=== PATIENT | female | born 1955 | race Caucasian/White ===

== ENCOUNTER 2017-12-01 20:12 | Inpatient (IN) | payer MEDICARE, MEDICAID ==
[~2017-12-01] VITALS: Ht 157.5 cm; Wt 91.4 kg
[2017-12-01 20:53] LABS: GLUCOSE,POINT OF CARE 118 MG/DL (70-110)
[2017-12-01 21:41] LABS: BASOPHILS % (AUTO) 0.5 % (0.0-2.0); EOSINOPHILS % (AUTO) 2.4 % (1.0-6.0); HEMATOCRIT 40.5 % (36-46); HEMOGLOBIN 13.9 g/dL (12.0-16.0); LYMPHOCYTES # (AUTO) 3.2 K/uL (1.0-4.8); LYMPHOCYTES % (AUTO) 35.4 % (22.0-44.0); MEAN CORPUSCULAR HEMOGLOBIN 32.2 pg (26.0-34.0); MEAN CORPUSCULAR HGB CONC 34.4 G/dL (31.0-37.0); MEAN CORPUSCULAR VOLUME 94 fL (80-100); MONOCYTES # (AUTO) 0.5 K/uL (0.1-1.0); MONOCYTES % (AUTO) 5.4 % (2.0-9.0); NEUTROPHILS # (AUTO) 5.1 K/uL (1.8-7.7); NEUTROPHILS % (AUTO) 56.3 % (40.0-70.0); PLATELET COUNT (AUTO) 224 K/uL (150-450); RED BLOOD CELL COUNT(AUTO) 4.32 MIL/uL (4.00-5.20); RED CELL DISTRIBUTION WIDTH 12.7 % (11.5-14.5)
[2017-12-01 21:58] LABS: ANION GAP 11 mmol/L (8-16); CARBON DIOXIDE 25 mmol/L (22-29); CHLORIDE 102 mmol/L (98-107); CREATININE 0.91 mg/dL (0.60-1.30); GLOMERULAR FILTR. RATE CALC > 60 mL/min (>60); GLUCOSE,RANDOM 115 mg/dL (70-110); POTASSIUM 3.8 mmol/L (3.5-5.1); SODIUM SERUM 138 mmol/L (136-145); UREA NITROGEN, BLOOD 5 mg/dL (7-18)
[2017-12-01 22:02] LABS: ALANINE AMINOTRANSFERASE 38 U/L (12-78); ALBUMIN 3.7 g/dL (3.4-5.0); ALKALINE PHOSPHATASE 104 U/L (46-116); ASPARTATE AMINOTRANSFERASE 23 U/L (15-37); BILIRUBIN,TOTAL 0.2 mg/dL (0.1-1.0); TOTAL PROTEIN, SERUM 7.4 g/dL (6.4-8.2)
[2017-12-01 22:20] LABS: AMPHET/METH SCREEN,URINE NEGATIVE (NEGATIVE); BARBITURATE SCREEN, URINE NEGATIVE (NEGATIVE); BENZODIAZEPINES SCREEN,URINE NEGATIVE (NEGATIVE); CANNABINOID SCREEN,URINE NEGATIVE (NEGATIVE); COCAINE SCREEN,URINE NEGATIVE (NEGATIVE); METHADONE SCREEN, URINE NEGATIVE (NEGATIVE); OPIATE SCREEN,URINE NEGATIVE (NEGATIVE)
[2017-12-01 22:23] LABS: PHENCYCLIDINE SCREEN,URINE NEGATIVE (NEGATIVE)
[2017-12-02] MEDS ORDERED: HALOPERIDOL 5 MG TABLET PO PRN (00:15)
[2017-12-02] MEDS ORDERED: ZOLPIDEM TARTRATE 10 MG TABLET PO PRN (00:15)
[2017-12-02] MEDS ORDERED: LORazepam 2 MG TABLET PO PRN (00:15)
[2017-12-02 04:14] VITALS: BP 157/79
[2017-12-02] MEDS: RisperiDONE 0.5 MG TABLET PO SCH ×2 (09:00→17:00)
[2017-12-02 10:16] VITALS: BP 150/64
[2017-12-02 17:00] VITALS: BP 151/93
[2017-12-02] MEDS ORDERED: MAG HYDROX/AL HYDROX/SIMETH ES 30 ML SUSPENSION UDCUP PO PRN (22:00)
[2017-12-02] MEDS ORDERED: PETROLATUM,WHITE 71 GM JELLY TP PRN (22:00)
[2017-12-02] MEDS ORDERED: ACETAMINOPHEN 325 MG TABLET PO PRN (22:00)
[2017-12-02] MEDS ORDERED: CloNIDine HCL 0.1 MG TABLET PO PRN (22:00)
[2017-12-02] MEDS ORDERED: LOPERAMIDE HCL 2 MG CAPSULE PO PRN (22:00)
[2017-12-02] MEDS ORDERED: ALBUTEROL SULFATE HFA 90 MCG/PUFF 8 GM INHALER IH PRN (22:00)
[2017-12-02] MEDS ORDERED: ONDANSETRON HCL 4 MG TABLET PO PRN (22:00)
[2017-12-02] MEDS ORDERED: DOCUSATE SODIUM 100 MG CAPSULE PO PRN (22:00)
[2017-12-02] MEDS ORDERED: MAGNESIUM HYDROXIDE SUSPENSION 30 ML UDCUP PO PRN (22:00)
[2017-12-03 07:41] LABS: BASOPHILS % (AUTO) 0.5 % (0.0-2.0); EOSINOPHILS % (AUTO) 2.3 % (1.0-6.0); HEMATOCRIT 40.5 % (36-46); HEMOGLOBIN 13.8 g/dL (12.0-16.0); LYMPHOCYTES # (AUTO) 2.3 K/uL (1.0-4.8); LYMPHOCYTES % (AUTO) 27.7 % (22.0-44.0); MEAN CORPUSCULAR HEMOGLOBIN 31.8 pg (26.0-34.0); MEAN CORPUSCULAR HGB CONC 33.9 G/dL (31.0-37.0); MEAN CORPUSCULAR VOLUME 94 fL (80-100); MONOCYTES # (AUTO) 0.6 K/uL (0.1-1.0); MONOCYTES % (AUTO) 7.2 % (2.0-9.0); NEUTROPHILS # (AUTO) 5.1 K/uL (1.8-7.7); NEUTROPHILS % (AUTO) 62.3 % (40.0-70.0); PLATELET COUNT (AUTO) 201 K/uL (150-450); RED BLOOD CELL COUNT(AUTO) 4.32 MIL/uL (4.00-5.20); RED CELL DISTRIBUTION WIDTH 13.1 % (11.5-14.5)
[2017-12-03 08:03] LABS: HEMOGLOBIN A1C 6.6 % (4.5-6.2)
[2017-12-03 08:22] LABS: CHOL/HDL RATIO 3.1 (3.9-5.7); THYROID STIMULATING HORMONE 3.24 uIU/mL (0.36-3.74)
[2017-12-03] MEDS: RisperiDONE 0.5 MG TABLET PO SCH ×2 (09:00→16:00)
[2017-12-03] MEDS: AmLODIPine BESYLATE 5 MG TABLET PO SCH (09:00)
[2017-12-03 10:06] VITALS: BP 148/85
[2017-12-03] MEDS: IBUPROFEN 400 MG TABLET PO PRN (13:03)
[2017-12-03 16:29] VITALS: BP 133/81
[2017-12-03 16:59] LABS: GLUCOMETER DEV NAME(LOC) 3EX 1; GLUCOSE,POINT OF CARE 119 MG/DL (70-110)
[2017-12-04 06:07] LABS: GLUCOMETER DEV NAME(LOC) 3EI B; GLUCOSE,POINT OF CARE 102 MG/DL (70-110)
[2017-12-04] MEDS: AmLODIPine BESYLATE 5 MG TABLET PO SCH (08:09)
[2017-12-04] MEDS: RisperiDONE 0.5 MG TABLET PO SCH ×2 (08:09→16:27)
[2017-12-04 09:37] VITALS: BP 152/78
[2017-12-04] MEDS: IBUPROFEN 400 MG TABLET PO PRN (12:57)
[2017-12-04 16:29] LABS: GLUCOMETER DEV NAME(LOC) 3EX 1; GLUCOSE,POINT OF CARE 126 MG/DL (70-110)
[2017-12-04 16:47] VITALS: BP 116/73
[2017-12-05 05:44] LABS: GLUCOMETER DEV NAME(LOC) 3EI B; GLUCOSE,POINT OF CARE 88 MG/DL (70-110)
[2017-12-05] MEDS: AmLODIPine BESYLATE 5 MG TABLET PO SCH (08:16)
[2017-12-05] MEDS: RisperiDONE 0.5 MG TABLET PO SCH ×2 (08:16→15:57)
[2017-12-05 09:41] VITALS: BP 125/72
[2017-12-05] MEDS: IBUPROFEN 400 MG TABLET PO PRN (12:51)
[2017-12-05 19:44] VITALS: BP 131/88
[2017-12-06 06:14] LABS: GLUCOMETER DEV NAME(LOC) 3EI B; GLUCOSE,POINT OF CARE 101 MG/DL (70-110)
[2017-12-06] MEDS: AmLODIPine BESYLATE 5 MG TABLET PO SCH (08:05)
[2017-12-06] MEDS: MULTIVITAMINS WITH MINERALS, THERAPEUTIC TABLET PO SCH (08:05)
[2017-12-06] MEDS: RisperiDONE 0.5 MG TABLET PO SCH ×2 (08:05→16:35)
[2017-12-06 08:55] VITALS: BP 153/89
[2017-12-06 16:40] VITALS: BP 137/74
[2017-12-06 16:43] LABS: GLUCOMETER DEV NAME(LOC) 3EX 1; GLUCOSE,POINT OF CARE 147 MG/DL (70-110)
[2017-12-07 05:39] LABS: GLUCOMETER DEV NAME(LOC) 3EI B; GLUCOSE,POINT OF CARE 101 MG/DL (70-110)
[2017-12-07 08:55] VITALS: BP 147/74
[2017-12-07] MEDS: AmLODIPine BESYLATE 5 MG TABLET PO SCH (10:12)
[2017-12-07] MEDS: MULTIVITAMINS WITH MINERALS, THERAPEUTIC TABLET PO SCH (10:12)
[2017-12-07] MEDS: RisperiDONE 0.5 MG TABLET PO SCH ×2 (10:13→16:16)
[2017-12-07 16:53] VITALS: BP 148/77
[2017-12-07 17:23] LABS: GLUCOMETER DEV NAME(LOC) 3EX 1; GLUCOSE,POINT OF CARE 147 MG/DL (70-110)
[2017-12-08 05:39] LABS: GLUCOMETER DEV NAME(LOC) 3EI B; GLUCOSE,POINT OF CARE 104 MG/DL (70-110)
[2017-12-08 08:00] VITALS: BP 132/71
[2017-12-08] MEDS: MULTIVITAMINS WITH MINERALS, THERAPEUTIC TABLET PO SCH (08:02)
[2017-12-08] MEDS: AmLODIPine BESYLATE 5 MG TABLET PO SCH (08:02)
[2017-12-08] MEDS: RisperiDONE 0.5 MG TABLET PO SCH (08:02)
[2017-12-08] MEDS: IBUPROFEN 400 MG TABLET PO PRN (08:05)
[2017-12-08 08:07] VITALS: BP 137/72
[2017-12-08 09:00] VITALS: BP 123/63
[2017-12-08] MEDS ORDERED: RISP.5 PO (11:21)
[2017-12-08] MEDS ORDERED: AMLO-511 PO (11:26)
== END 2017-12-08 17:00 | disposition home or self-care (01) | DRG 885 ==
LOC: EMS 20:12 → 3EX 12-02 01:11
PROVIDERS: ADMIT Psychiatry & Neurology Child & Adolescent Psychiatry; ATTEND Psychiatry & Neurology Child & Adolescent Psychiatry
DX: F20.0 Paranoid schizophrenia (principal); E11.9 Type 2 diabetes mellitus without complications; F41.9 Anxiety disorder, unspecified; I10 Essential (primary) hypertension; R00.1 Bradycardia, unspecified; F99 Mental disorder, not otherwise specified; G20 Parkinson's disease
CPT/HCPCS: 83036; 84443; 87081; 99285; G0480

== ENCOUNTER 2023-07-23 13:08 | Inpatient (IN) | payer MEDICARE, MEDICAID ==
[~2023-07-23] VITALS: Ht 157.5 cm; Wt 75.0 kg
[~2023-07-23 13:08] MED LIST: AMLO-257 PO; RISP0.5T39 PO
[2023-07-23] MEDS ORDERED: DIVA125T32 PO (14:28)
[2023-07-23] MEDS ORDERED: GEMF-77 PO (14:28)
[2023-07-23] MEDS ORDERED: METF-1211 PO (14:28)
[2023-07-23] MEDS ORDERED: BENZ1TAB84 PO (14:28)
[2023-07-23] MEDS ORDERED: ATOR10TA PO (14:28)
[2023-07-23] MEDS ORDERED: LEVO25TA9 PO (14:28)
[2023-07-23] MEDS ORDERED: PALI234D IM (14:28)
[2023-07-23 14:47] LABS: COVID AG,FIA SOURCE NASAL SWAB
[2023-07-23 15:38] LABS: SARS-COV2 (COVID) ANTIGEN,FIA Negative (Negative)
[2023-07-23] MEDS: LORazepam 2 MG/ML VIAL IM ONE (16:17)
[2023-07-23] MEDS: HALOPERIDOL LACTATE 5 MG/ML VIAL IM ONE (16:18)
[2023-07-23] MEDS: DiphenhydrAMINE HCL 50 MG/ML VIAL IM ONE (16:19)
[2023-07-24] MEDS ORDERED: LORazepam 2 MG TABLET PO PRN (11:30)
[2023-07-24] MEDS ORDERED: HALOPERIDOL 5 MG TABLET PO PRN (11:30)
[2023-07-24] MEDS ORDERED: ZOLPIDEM TARTRATE 10 MG TABLET PO PRN (11:45)
[2023-07-24] MEDS ORDERED: ALBUTEROL SULFATE HFA 90 MCG/PUFF 8 GM INHALER IH PRN (14:00)
[2023-07-24] MEDS ORDERED: NICOTINE 14 MG/24 HOUR PATCH TD PRN (14:00)
[2023-07-24] MEDS ORDERED: IBUPROFEN 400 MG TABLET PO PRN (14:00)
[2023-07-24] MEDS ORDERED: CloNIDine HCL 0.1 MG TABLET PO PRN (14:00)
[2023-07-24] MEDS ORDERED: MAG HYDROX/ALUMINUM HYD/SIMETH ES 30 ML SUSPENSION UDCUP PO PRN (14:00)
[2023-07-24] MEDS ORDERED: MAGNESIUM HYDROXIDE SUSPENSION 30 ML UDCUP PO PRN (14:00)
[2023-07-24] MEDS ORDERED: DOCUSATE SODIUM 100 MG CAPSULE PO PRN (14:00)
[2023-07-24] MEDS ORDERED: LOPERAMIDE HCL 2 MG CAPSULE PO PRN (14:00)
[2023-07-24] MEDS ORDERED: GuaiFENesin/D-METHORPHAN [SUGAR-FREE] 200-20MG/10 ML SYRUP UDCUP PO PRN (14:00)
[2023-07-24] MEDS ORDERED: PETROLATUM,WHITE 28 GM JELLY TP PRN (14:00)
[2023-07-24] MEDS ORDERED: ACETAMINOPHEN 325 MG TABLET PO PRN (14:00)
[2023-07-24] MEDS ORDERED: ONDANSETRON HCL 4 MG TABLET PO PRN (14:00)
[2023-07-24] MEDS: MetFORMIN HCL 500 MG TABLET PO SCH (17:00)
[2023-07-24] MEDS: ATORVASTATIN CALCIUM 10 MG TABLET PO SCH (21:00)
[2023-07-25 06:06] VITALS: BP 118/78; PULSE 76; RESP 18; TEMP 97.2
[2023-07-25] MEDS: LEVOTHYROXINE SODIUM 25 MCG TABLET PO SCH (06:30)
[2023-07-25] MEDS: GEMFIBROZIL 600 MG TABLET PO SCH (06:30)
[2023-07-25] MEDS: AmLODIPine BESYLATE 5 MG TABLET PO SCH (08:37)
[2023-07-25 12:00] VITALS: RESP 18
== END 2023-07-25 21:00 | disposition short-term general hospital (02) | DRG 885 ==
LOC: EMS 13:09 → B3A 07-24 09:16
PROVIDERS: ADMIT Psychiatry & Neurology Child & Adolescent Psychiatry; ATTEND Psychiatry & Neurology Child & Adolescent Psychiatry
DX: F25.9 Schizoaffective disorder, unspecified (principal); E11.9 Type 2 diabetes mellitus without complications; F41.9 Anxiety disorder, unspecified; E05.90 Thyrotoxicosis, unspecified without thyrotoxic crisis or storm; Z20.822 Contact with and (suspected) exposure to COVID-19; I10 Essential (primary) hypertension; Z79.899 Other long term (current) drug therapy
CPT/HCPCS: J1200; J1630; J2060

== ENCOUNTER 2023-07-25 14:43 | Inpatient (IN) | payer MEDICARE, OTHER ==
[~2023-07-25] VITALS: Ht 157.5 cm; Wt 92.0 kg
[~2023-07-25 14:43] MED LIST changes: +ATOR10TA PO; +BENZ1TAB84 PO; +DIVA125T32 PO; +GEMF-77 PO; +LEVO25TA9 PO; +METF-1211 PO; +PALI234D IM
[2023-07-25 20:37] VITALS: BP 156/79; PULSE 61; RESP 17; TEMP 98.8
[2023-07-25] MEDS ORDERED: ACETAMINOPHEN 325 MG TABLET PO PRN (21:15)
[2023-07-25] MEDS ORDERED: ONDANSETRON HCL 4 MG/2 ML VIAL IVP PRN (21:15)
[2023-07-25 21:28] LABS: BASOPHILS % (AUTO) 0.2 % (0.0-2.0); EOSINOPHILS % (AUTO) 0.7 % (1.0-6.0); HEMATOCRIT 41.8 % (36-46); HEMOGLOBIN 13.8 g/dL (12.0-16.0); LYMPHOCYTES # (AUTO) 1.5 K/uL (1.0-4.8); LYMPHOCYTES % (AUTO) 13.2 % (22.0-44.0); MEAN CORPUSCULAR HEMOGLOBIN 30.5 pg (26.0-34.0); MEAN CORPUSCULAR HGB CONC 32.9 G/dL (31.0-37.0); MEAN CORPUSCULAR VOLUME 93 fL (80-100); MONOCYTES # (AUTO) 0.6 K/uL (0.1-1.0); MONOCYTES % (AUTO) 5.2 % (2.0-9.0); NEUTROPHILS % (AUTO) 80.7 % (40.0-70.0); PLATELET COUNT (AUTO) 185 K/uL (150-450); RED BLOOD CELL COUNT(AUTO) 4.51 MIL/uL (4.00-5.20); RED CELL DISTRIBUTION WIDTH 13.2 % (11.5-14.5); WHITE BLOOD COUNT (AUTO) 11.2 K/uL (4.5-11.0)
[2023-07-25] MEDS ORDERED: KETOROLAC TROMETHAMINE 15 MG/ML VIAL IVP PRN (21:30)
[2023-07-25] MEDS ORDERED: MORPHINE SULFATE 2 MG/ML SYRINGE IVP PRN (21:30)
[2023-07-25 21:37] LABS: ANION GAP 8 mmol/L (8-16); CALCIUM, TOTAL 9.4 mg/dL (8.8-10.5); CARBON DIOXIDE 28 mmol/L (22-29); CHLORIDE 102 mmol/L (98-107); CREATININE 0.62 mg/dL (0.60-1.30); GLOMERULAR FILTR. RATE CALC > 60 mL/min (>60); GLUCOSE,RANDOM 114 mg/dL (70-110); POTASSIUM 3.6 mmol/L (3.5-5.1); SODIUM SERUM 138 mmol/L (136-145); UREA NITROGEN, BLOOD 22 mg/dL (7-18)
[2023-07-25 21:43] LABS: ALANINE AMINOTRANSFERASE 20 U/L (12-78); ALKALINE PHOSPHATASE 106 U/L (46-116); ASPARTATE AMINOTRANSFERASE 20 U/L (15-37); BILIRUBIN,TOTAL 0.5 mg/dL (0.1-1.0); TOTAL PROTEIN, SERUM 7.4 g/dL (6.4-8.2)
[2023-07-25 21:45] LABS: TROPONIN I-HIGH SENSITIVITY 10 ng/L (<51)
[2023-07-25 21:50] LABS: ALBUMIN 3.3 g/dL (3.4-5.0)
[2023-07-25] MEDS: LIDOCAINE 5% 36 GM OINTMENT TP SCH (23:15)
[2023-07-25] MEDS: MELATONIN 3 MG TABLET PO PRN (23:18)
[2023-07-25] MEDS: HALOPERIDOL LACTATE 5 MG/ML VIAL IM ONE (23:26)
[2023-07-25] MEDS ORDERED: DEXTROSE 50%-WATER 25 GM/50 ML SYRINGE IVP PRN (23:30)
[2023-07-25] MEDS ORDERED: INSULIN LISPRO 100 UNITS/ML SQ PRN (23:30)
[2023-07-26] MEDS: LORazepam 2 MG/ML VIAL IM ONE (02:19)
[2023-07-26] MEDS: DiphenhydrAMINE HCL 50 MG/ML VIAL IM ONE (02:20)
[2023-07-26] MEDS: HALOPERIDOL LACTATE 5 MG/ML VIAL IM ONE (02:24)
[2023-07-26] MEDS: LEVOTHYROXINE SODIUM 25 MCG TABLET PO SCH (06:30)
[2023-07-26] MEDS: GEMFIBROZIL 600 MG TABLET PO SCH (06:30)
[2023-07-26] MEDS: BENZTROPINE MESYLATE 1 MG TABLET PO SCH (09:00)
[2023-07-26] MEDS: DOCUSATE SODIUM 100 MG CAPSULE PO SCH (09:00)
[2023-07-26] MEDS: AmLODIPine BESYLATE 5 MG TABLET PO SCH (09:00)
[2023-07-26] MEDS: DIVALPROEX SODIUM 125 MG DR TABLET PO SCH (09:00)
[2023-07-26] MEDS: SODIUM CHLORIDE 0.9% 1,000 ML IV SCH (11:19)
[2023-07-26] MEDS: ATORVASTATIN CALCIUM 10 MG TABLET PO SCH (21:00)
[2023-07-27] MEDS: HEPARIN SODIUM,PORCINE 5,000 UNITS/ML VIAL SQ SCH
[2023-07-28] MEDS ORDERED: DIVA125C20 PO (18:31)
[2023-07-28] MEDS ORDERED: LISI5TAB21 PO (18:31)
[2023-07-28 18:52] LABS: COVID AG,FIA SOURCE NASAL SWAB
[2023-07-28 19:08] LABS: SARS-COV2 (COVID) ANTIGEN,FIA Negative (Negative)
== END 2023-07-28 21:50 | DRG 563 ==
LOC: EMS 14:45 → 6S 22:29
PROVIDERS: ADMIT Internal Medicine; ATTEND Internal Medicine
DX: S52.591A Other fractures of lower end of right radius, initial encounter for closed fracture (principal); F41.9 Anxiety disorder, unspecified; E11.9 Type 2 diabetes mellitus without complications; I10 Essential (primary) hypertension; F20.9 Schizophrenia, unspecified; E03.9 Hypothyroidism, unspecified; E05.90 Thyrotoxicosis, unspecified without thyrotoxic crisis or storm; R45.1 Restlessness and agitation; R79.89 Other specified abnormal findings of blood chemistry; X58.XXXA Exposure to other specified factors, initial encounter; Y93.89 Activity, other specified; Y92.89 Other specified places as the place of occurrence of the external cause; Y99.8 Other external cause status; Z79.899 Other long term (current) drug therapy; M81.0 Age-related osteoporosis without current pathological fracture
CPT/HCPCS: 80053; 84484; 85025; 93005; 99285; J1200; J1630; J1644; J2060

== ENCOUNTER 2023-07-28 16:36 | Inpatient (IN) | payer MEDICARE, MEDICAID ==
[~2023-07-28] VITALS: Ht 157.5 cm; Wt 78.0 kg
[2023-07-28] MEDS ORDERED: ZOLPIDEM TARTRATE 10 MG TABLET PO PRN (18:15)
[2023-07-28] MEDS ORDERED: DIVA125C20 PO (18:31)
[2023-07-28] MEDS ORDERED: LISI5TAB21 PO (18:31)
[2023-07-29 00:25] VITALS: RESP 18
[2023-07-29] MEDS ORDERED: PNEUMOCOCCAL VACCINE POLYVALENT 0.5 ML SYRINGE [PPSV23] IM. ONE (00:30)
[2023-07-29] MEDS ORDERED: INFLUENZA VIRUS VACCINE QVS 2023-24 (6MO+)/PF 60 MCG/0.5 ML SYRINGE IM. ONE (00:30)
[2023-07-29] MEDS ORDERED: LORazepam 2 MG/ML VIAL ONE (01:38)
[2023-07-29] MEDS ORDERED: HALOPERIDOL LACTATE 5 MG/ML VIAL ONE (01:39)
[2023-07-29] MEDS ORDERED: DiphenhydrAMINE HCL 50 MG/ML VIAL ONE (01:39)
[2023-07-29] MEDS: DiphenhydrAMINE HCL 50 MG/ML VIAL IM ONE ×2 (01:53→12:46)
[2023-07-29] MEDS: HALOPERIDOL LACTATE 5 MG/ML VIAL IM ONE ×2 (01:53→12:46)
[2023-07-29] MEDS: LORazepam 2 MG/ML VIAL IM ONE ×2 (01:53→12:46)
[2023-07-29] MEDS ORDERED: DEXTROSE 50%-WATER 25 GM/50 ML SYRINGE IVP PRN (06:45)
[2023-07-29] MEDS: DIVALPROEX SODIUM 500 MG DR TABLET PO SCH (09:30)
[2023-07-29] MEDS: RisperiDONE 2 MG TABLET PO SCH (09:30)
[2023-07-29] MEDS: INSULIN LISPRO 100 UNITS/ML SQ PRN (18:49)
[2023-07-29 19:01] LABS: GLUCOMETER DEV NAME(LOC) 3EX.2; GLUCOSE,POINT OF CARE 93 MG/DL (70-110)
[2023-07-29] MEDS: ChlorproMAZINE HCL 50 MG/2 ML AMP IM PRN (19:28)
[2023-07-29 20:47] VITALS: RESP 18
[2023-07-29 21:36] LABS: GLUCOMETER DEV NAME(LOC) 3EX.2; GLUCOSE,POINT OF CARE 140 MG/DL (70-110)
[2023-07-30 06:31] LABS: GLUCOMETER DEV NAME(LOC) 3EX.2; GLUCOSE,POINT OF CARE 91 MG/DL (70-110)
[2023-07-30] MEDS ORDERED: MAGNESIUM HYDROXIDE SUSPENSION 30 ML UDCUP PO PRN (08:00)
[2023-07-30] MEDS ORDERED: LOPERAMIDE HCL 2 MG CAPSULE PO PRN (08:00)
[2023-07-30] MEDS ORDERED: ONDANSETRON HCL 4 MG TABLET PO PRN (08:00)
[2023-07-30] MEDS ORDERED: MAG HYDROX/ALUMINUM HYD/SIMETH ES 30 ML SUSPENSION UDCUP PO PRN (08:00)
[2023-07-30] MEDS ORDERED: IBUPROFEN 400 MG TABLET PO PRN (08:00)
[2023-07-30] MEDS ORDERED: DOCUSATE SODIUM 100 MG CAPSULE PO PRN (08:00)
[2023-07-30] MEDS ORDERED: ALBUTEROL SULFATE HFA 90 MCG/PUFF 8 GM INHALER IH PRN (08:00)
[2023-07-30] MEDS ORDERED: CloNIDine HCL 0.1 MG TABLET PO PRN (08:00)
[2023-07-30] MEDS ORDERED: GuaiFENesin/D-METHORPHAN [SUGAR-FREE] 200-20MG/10 ML SYRUP UDCUP PO PRN (08:00)
[2023-07-30] MEDS ORDERED: PETROLATUM,WHITE 28 GM JELLY TP PRN (08:00)
[2023-07-30] MEDS ORDERED: ACETAMINOPHEN 325 MG TABLET PO PRN (08:00)
[2023-07-30 09:20] VITALS: RESP 18
[2023-07-30 17:51] LABS: GLUCOMETER DEV NAME(LOC) 3E.I 2; GLUCOSE,POINT OF CARE 101 MG/DL (70-110)
[2023-07-30 20:46] VITALS: RESP 18
[2023-07-30 20:50] LABS: GLUCOMETER DEV NAME(LOC) 3EX.2; GLUCOSE,POINT OF CARE 165 MG/DL (70-110)
[2023-07-31 05:51] LABS: GLUCOMETER DEV NAME(LOC) 3E.I 2; GLUCOSE,POINT OF CARE 129 MG/DL (70-110)
[2023-07-31 08:23] LABS: BASOPHILS % (AUTO) 0.5 % (0.0-2.0); EOSINOPHILS % (AUTO) 1.5 % (1.0-6.0); HEMATOCRIT 43.2 % (36-46); HEMOGLOBIN 14.2 g/dL (12.0-16.0); LYMPHOCYTES # (AUTO) 2.4 K/uL (1.0-4.8); LYMPHOCYTES % (AUTO) 28.1 % (22.0-44.0); MEAN CORPUSCULAR HEMOGLOBIN 30.5 pg (26.0-34.0); MEAN CORPUSCULAR HGB CONC 32.9 G/dL (31.0-37.0); MEAN CORPUSCULAR VOLUME 93 fL (80-100); MONOCYTES # (AUTO) 0.6 K/uL (0.1-1.0); MONOCYTES % (AUTO) 6.9 % (2.0-9.0); NEUTROPHILS # (AUTO) 5.4 K/uL (1.8-7.7); PLATELET COUNT (AUTO) 202 K/uL (150-450); RED BLOOD CELL COUNT(AUTO) 4.66 MIL/uL (4.00-5.20); RED CELL DISTRIBUTION WIDTH 13.3 % (11.5-14.5); WHITE BLOOD COUNT (AUTO) 8.5 K/uL (4.5-11.0)
[2023-07-31 08:36] LABS: HEMOGLOBIN A1C 6.1 % (3.8-5.6)
[2023-07-31 08:56] LABS: ALANINE AMINOTRANSFERASE 23 U/L (12-78); ALBUMIN 3.2 g/dL (3.4-5.0); ALKALINE PHOSPHATASE 110 U/L (46-116); ASPARTATE AMINOTRANSFERASE 25 U/L (15-37); BILIRUBIN,TOTAL 0.7 mg/dL (0.1-1.0); CALCIUM, TOTAL 9.8 mg/dL (8.8-10.5); CHLORIDE 101 mmol/L (98-107); CREATININE 0.63 mg/dL (0.60-1.30); GLOMERULAR FILTR. RATE CALC > 60 mL/min (>60); GLUCOSE,RANDOM 114 mg/dL (70-110); POTASSIUM 4.1 mmol/L (3.5-5.1); SODIUM SERUM 136 mmol/L (136-145); THYROID STIMULATING HORMONE 4.21 uIU/mL (0.36-3.74); TOTAL PROTEIN, SERUM 7.8 g/dL (6.4-8.2); UREA NITROGEN, BLOOD 14 mg/dL (7-18)
[2023-07-31 09:03] LABS: ANION GAP 6 mmol/L (8-16); CARBON DIOXIDE 29 mmol/L (22-29)
[2023-07-31 09:44] LABS: CHOL/HDL RATIO 2.8 (3.9-5.7); CHOLESTEROL 193 mg/dL (131-200); HDL CHOLESTEROL 69 mg/dL (40-60); LDL CHOL (CALC.) 107 mg/dL (0-130); TRIGLYCERIDES 85 mg/dL (15-150)
[2023-07-31 10:04] VITALS: RESP 18; TEMP 97
[2023-07-31 12:11] LABS: GLUCOMETER DEV NAME(LOC) 3EX.2; GLUCOSE,POINT OF CARE 110 MG/DL (70-110)
[2023-07-31 17:26] LABS: GLUCOMETER DEV NAME(LOC) 3EX.2; GLUCOSE,POINT OF CARE 161 MG/DL (70-110)
[2023-07-31 20:11] LABS: GLUCOMETER DEV NAME(LOC) 3E.I 2; GLUCOSE,POINT OF CARE 201 MG/DL (70-110)
[2023-07-31 20:52] VITALS: RESP 18
[2023-08-01 05:46] LABS: GLUCOMETER DEV NAME(LOC) 3E.I 2; GLUCOSE,POINT OF CARE 88 MG/DL (70-110)
[2023-08-01 08:33] VITALS: RESP 18; TEMP 98
[2023-08-01 11:06] LABS: GLUCOMETER DEV NAME(LOC) 3EX.2; GLUCOSE,POINT OF CARE 144 MG/DL (70-110)
[2023-08-01 17:26] LABS: GLUCOMETER DEV NAME(LOC) 3EX.2; GLUCOSE,POINT OF CARE 172 MG/DL (70-110)
[2023-08-01 21:00] VITALS: RESP 18
[2023-08-01 22:01] LABS: GLUCOMETER DEV NAME(LOC) 3EX.2; GLUCOSE,POINT OF CARE 145 MG/DL (70-110)
[2023-08-02 05:35] LABS: GLUCOMETER DEV NAME(LOC) 3E.I 2; GLUCOSE,POINT OF CARE 83 MG/DL (70-110)
[2023-08-02 09:05] VITALS: RESP 18
[2023-08-02 11:25] LABS: GLUCOMETER DEV NAME(LOC) 3E.I 2; GLUCOSE,POINT OF CARE 96 MG/DL (70-110)
[2023-08-02 16:20] LABS: GLUCOMETER DEV NAME(LOC) 3E.I 2; GLUCOSE,POINT OF CARE 124 MG/DL (70-110)
[2023-08-02 21:01] LABS: GLUCOMETER DEV NAME(LOC) 3E.I 2; GLUCOSE,POINT OF CARE 114 MG/DL (70-110)
[2023-08-02 22:46] VITALS: RESP 18
[2023-08-03 06:11] LABS: GLUCOMETER DEV NAME(LOC) 3E.I 2; GLUCOSE,POINT OF CARE 87 MG/DL (70-110)
[2023-08-03 11:30] LABS: GLUCOMETER DEV NAME(LOC) 3EX.2; GLUCOSE,POINT OF CARE 102 MG/DL (70-110)
[2023-08-03 16:41] LABS: GLUCOMETER DEV NAME(LOC) 3EX.2; GLUCOSE,POINT OF CARE 96 MG/DL (70-110)
[2023-08-03 20:40] LABS: GLUCOMETER DEV NAME(LOC) 3EX.2; GLUCOSE,POINT OF CARE 139 MG/DL (70-110)
[2023-08-03 20:58] VITALS: BP 126/62; PULSE 69; RESP 18; TEMP 97.2
[2023-08-04 07:06] LABS: GLUCOMETER DEV NAME(LOC) 3E.I 2; GLUCOSE,POINT OF CARE 91 MG/DL (70-110)
[2023-08-04 11:30] LABS: GLUCOMETER DEV NAME(LOC) 3EX.2; GLUCOSE,POINT OF CARE 168 MG/DL (70-110)
[2023-08-04 11:31] VITALS: RESP 18
[2023-08-04 17:40] LABS: GLUCOMETER DEV NAME(LOC) 3EX.2; GLUCOSE,POINT OF CARE 104 MG/DL (70-110)
[2023-08-04 20:10] VITALS: RESP 18
[2023-08-04 21:16] LABS: GLUCOMETER DEV NAME(LOC) 3E.I 2; GLUCOSE,POINT OF CARE 145 MG/DL (70-110)
[2023-08-05 07:06] LABS: GLUCOMETER DEV NAME(LOC) 3E.I 2; GLUCOSE,POINT OF CARE 84 MG/DL (70-110)
[2023-08-05 11:40] LABS: GLUCOMETER DEV NAME(LOC) 3EX.2; GLUCOSE,POINT OF CARE 142 MG/DL (70-110)
[2023-08-05 11:51] VITALS: RESP 19
[2023-08-05 17:26] LABS: GLUCOMETER DEV NAME(LOC) 3EX.2; GLUCOSE,POINT OF CARE 197 MG/DL (70-110)
[2023-08-05 20:21] VITALS: RESP 18
[2023-08-05 20:31] LABS: GLUCOMETER DEV NAME(LOC) 3E.I 2; GLUCOSE,POINT OF CARE 174 MG/DL (70-110)
[2023-08-06 05:36] LABS: GLUCOMETER DEV NAME(LOC) 3E.I 2; GLUCOSE,POINT OF CARE 88 MG/DL (70-110)
[2023-08-06 08:45] VITALS: RESP 18; TEMP 97.6
[2023-08-06 11:46] LABS: GLUCOMETER DEV NAME(LOC) 3EX.2; GLUCOSE,POINT OF CARE 121 MG/DL (70-110)
[2023-08-06 17:31] LABS: GLUCOMETER DEV NAME(LOC) 3EX.2; GLUCOSE,POINT OF CARE 96 MG/DL (70-110)
[2023-08-06 20:28] VITALS: BP 141/81; PULSE 86; RESP 18; TEMP 98.1
[2023-08-07 04:26] LABS: GLUCOMETER DEV NAME(LOC) 3E.I 2; GLUCOSE,POINT OF CARE 176 MG/DL (70-110)
[2023-08-07 05:41] LABS: GLUCOMETER DEV NAME(LOC) 3E.I 2; GLUCOSE,POINT OF CARE 91 MG/DL (70-110)
[2023-08-07 08:40] VITALS: BP 116/57; PULSE 64; RESP 18; TEMP 97.6
[2023-08-07 11:46] LABS: GLUCOMETER DEV NAME(LOC) 3EX.2; GLUCOSE,POINT OF CARE 106 MG/DL (70-110)
[2023-08-07 20:37] LABS: GLUCOMETER DEV NAME(LOC) 3EX.2; GLUCOSE,POINT OF CARE 124 MG/DL (70-110)
[2023-08-08 06:31] LABS: GLUCOMETER DEV NAME(LOC) 3EX.2; GLUCOSE,POINT OF CARE 95 MG/DL (70-110)
[2023-08-08 08:32] VITALS: RESP 18
[2023-08-08 11:45] LABS: GLUCOMETER DEV NAME(LOC) 3E.I 2; GLUCOSE,POINT OF CARE 119 MG/DL (70-110)
[2023-08-08] MEDS: DIVALPROEX SODIUM 125 MG DR CAPSULE PO SCH (17:00)
[2023-08-08 17:36] LABS: GLUCOMETER DEV NAME(LOC) 3E.I 2; GLUCOSE,POINT OF CARE 101 MG/DL (70-110)
[2023-08-08] MEDS: LORazepam 2 MG TABLET PO PRN (18:09)
[2023-08-08 20:07] VITALS: RESP 18
[2023-08-08 20:26] LABS: GLUCOMETER DEV NAME(LOC) 3EX.2; GLUCOSE,POINT OF CARE 274 MG/DL (70-110)
[2023-08-09 05:31] LABS: GLUCOMETER DEV NAME(LOC) 3EX.2; GLUCOSE,POINT OF CARE 100 MG/DL (70-110)
[2023-08-09 08:51] VITALS: RESP 17
[2023-08-09 11:46] LABS: GLUCOMETER DEV NAME(LOC) 3E.I 2; GLUCOSE,POINT OF CARE 190 MG/DL (70-110)
[2023-08-09] MEDS: HALOPERIDOL 5 MG TABLET PO PRN (11:48)
[2023-08-09 16:26] LABS: GLUCOMETER DEV NAME(LOC) 3EX.2; GLUCOSE,POINT OF CARE 193 MG/DL (70-110)
[2023-08-09 20:23] VITALS: RESP 18
[2023-08-09 20:41] LABS: GLUCOMETER DEV NAME(LOC) 3EX.2; GLUCOSE,POINT OF CARE 113 MG/DL (70-110)
[2023-08-10 05:45] LABS: GLUCOMETER DEV NAME(LOC) 3EX.2; GLUCOSE,POINT OF CARE 111 MG/DL (70-110)
[2023-08-10 08:26] VITALS: RESP 18; TEMP 98
[2023-08-10 11:55] LABS: GLUCOMETER DEV NAME(LOC) 3E.I 2; GLUCOSE,POINT OF CARE 80 MG/DL (70-110)
[2023-08-10 17:25] LABS: GLUCOMETER DEV NAME(LOC) 3E.I 2; GLUCOSE,POINT OF CARE 133 MG/DL (70-110)
[2023-08-10 20:03] VITALS: BP 119/65; PULSE 68; RESP 18; TEMP 97.9
[2023-08-10 20:41] LABS: GLUCOMETER DEV NAME(LOC) 3EX.2; GLUCOSE,POINT OF CARE 135 MG/DL (70-110)
[2023-08-11 07:36] LABS: GLUCOMETER DEV NAME(LOC) 3EX.2; GLUCOSE,POINT OF CARE 63 MG/DL (70-110)
[2023-08-11 07:36] LABS: GLUCOMETER DEV NAME(LOC) 3EX.2; GLUCOSE,POINT OF CARE 130 MG/DL (70-110)
[2023-08-11 09:00] VITALS: BP 126/71; PULSE 63; RESP 18; TEMP 97.8
[2023-08-11 10:42] VITALS: TEMP 98
[2023-08-11 14:06] LABS: GLUCOMETER DEV NAME(LOC) 3E.I 2; GLUCOSE,POINT OF CARE 86 MG/DL (70-110)
[2023-08-11 17:15] LABS: GLUCOMETER DEV NAME(LOC) 3E.I 2; GLUCOSE,POINT OF CARE 107 MG/DL (70-110)
[2023-08-11 20:36] LABS: GLUCOMETER DEV NAME(LOC) 3EX.2; GLUCOSE,POINT OF CARE 119 MG/DL (70-110)
[2023-08-11 21:34] VITALS: TEMP 98
[2023-08-12 06:21] LABS: GLUCOMETER DEV NAME(LOC) 3EX.2; GLUCOSE,POINT OF CARE 108 MG/DL (70-110)
[2023-08-12 08:45] VITALS: BP 115/60; PULSE 67; RESP 18; TEMP 97.6
[2023-08-12 11:41] LABS: GLUCOMETER DEV NAME(LOC) 3E.I 2; GLUCOSE,POINT OF CARE 89 MG/DL (70-110)
[2023-08-12 17:36] LABS: GLUCOMETER DEV NAME(LOC) 3E.I 2; GLUCOSE,POINT OF CARE 114 MG/DL (70-110)
[2023-08-12 20:50] VITALS: TEMP 97.4
[2023-08-12 20:56] LABS: GLUCOMETER DEV NAME(LOC) 3EX.2; GLUCOSE,POINT OF CARE 133 MG/DL (70-110)
[2023-08-13 06:31] LABS: GLUCOMETER DEV NAME(LOC) 3EX.2; GLUCOSE,POINT OF CARE 75 MG/DL (70-110)
[2023-08-13 08:28] VITALS: RESP 18; TEMP 97.8
[2023-08-13 12:26] LABS: GLUCOMETER DEV NAME(LOC) 3E.I 2; GLUCOSE,POINT OF CARE 119 MG/DL (70-110)
[2023-08-13 17:26] LABS: GLUCOMETER DEV NAME(LOC) 3E.I 2; GLUCOSE,POINT OF CARE 138 MG/DL (70-110)
[2023-08-13 20:30] LABS: GLUCOMETER DEV NAME(LOC) 3EX.2; GLUCOSE,POINT OF CARE 121 MG/DL (70-110)
[2023-08-13 21:43] VITALS: RESP 18
[2023-08-14 05:40] LABS: GLUCOMETER DEV NAME(LOC) 3EX.2; GLUCOSE,POINT OF CARE 85 MG/DL (70-110)
[2023-08-14 08:35] VITALS: RESP 18; TEMP 98
[2023-08-14 11:51] LABS: GLUCOMETER DEV NAME(LOC) 3E.I 2; GLUCOSE,POINT OF CARE 142 MG/DL (70-110)
[2023-08-14 16:55] LABS: GLUCOMETER DEV NAME(LOC) 3E.I 2; GLUCOSE,POINT OF CARE 149 MG/DL (70-110)
[2023-08-14 20:20] LABS: GLUCOMETER DEV NAME(LOC) 3EX.2; GLUCOSE,POINT OF CARE 96 MG/DL (70-110)
[2023-08-14 23:44] VITALS: RESP 18
[2023-08-15 05:52] LABS: GLUCOMETER DEV NAME(LOC) 3E.I 2; GLUCOSE,POINT OF CARE 79 MG/DL (70-110)
[2023-08-15 08:38] VITALS: RESP 18; TEMP 97.8
[2023-08-15 11:06] LABS: GLUCOMETER DEV NAME(LOC) 3E.I 2; GLUCOSE,POINT OF CARE 103 MG/DL (70-110)
[2023-08-15 17:01] LABS: GLUCOMETER DEV NAME(LOC) 3E.I 2; GLUCOSE,POINT OF CARE 109 MG/DL (70-110)
[2023-08-15 20:31] LABS: GLUCOMETER DEV NAME(LOC) 3EX.2; GLUCOSE,POINT OF CARE 211 MG/DL (70-110)
[2023-08-15 21:48] VITALS: RESP 18
[2023-08-16 06:06] LABS: GLUCOMETER DEV NAME(LOC) 3EX.2; GLUCOSE,POINT OF CARE 78 MG/DL (70-110)
[2023-08-16 11:31] LABS: GLUCOMETER DEV NAME(LOC) 3EX.2; GLUCOSE,POINT OF CARE 113 MG/DL (70-110)
[2023-08-16] MEDS: TUBERCULIN, PURIFIED PROTEIN DERIVATIVE 5 TU/0.1 ML SYRINGE ID ONE (15:31)
[2023-08-16 16:21] LABS: GLUCOMETER DEV NAME(LOC) 3EX.2; GLUCOSE,POINT OF CARE 137 MG/DL (70-110)
[2023-08-16 20:16] LABS: GLUCOMETER DEV NAME(LOC) 3EX.2; GLUCOSE,POINT OF CARE 191 MG/DL (70-110)
[2023-08-17 06:06] LABS: GLUCOMETER DEV NAME(LOC) 3EX.2; GLUCOSE,POINT OF CARE 84 MG/DL (70-110)
[2023-08-17 08:34] VITALS: PULSE 18; RESP 18; TEMP 98
[2023-08-17 11:31] LABS: GLUCOMETER DEV NAME(LOC) 3EX.2; GLUCOSE,POINT OF CARE 164 MG/DL (70-110)
[2023-08-17 12:20] LABS: GLUCOMETER DEV NAME(LOC) 3EX.2; GLUCOSE,POINT OF CARE 162 MG/DL (70-110)
[2023-08-17 17:05] LABS: GLUCOMETER DEV NAME(LOC) 3EX.2; GLUCOSE,POINT OF CARE 189 MG/DL (70-110)
[2023-08-17 20:18] VITALS: RESP 18
[2023-08-17 20:36] LABS: GLUCOMETER DEV NAME(LOC) 3EX.2; GLUCOSE,POINT OF CARE 76 MG/DL (70-110)
[2023-08-18 06:06] LABS: GLUCOMETER DEV NAME(LOC) 3EX.2; GLUCOSE,POINT OF CARE 75 MG/DL (70-110)
[2023-08-18 11:36] LABS: GLUCOMETER DEV NAME(LOC) 3E.I 2; GLUCOSE,POINT OF CARE 144 MG/DL (70-110)
[2023-08-18 16:46] LABS: GLUCOMETER DEV NAME(LOC) 3E.I 2; GLUCOSE,POINT OF CARE 113 MG/DL (70-110)
[2023-08-18 17:20] VITALS: RESP 19
[2023-08-18 20:30] LABS: GLUCOMETER DEV NAME(LOC) 3E.I 2; GLUCOSE,POINT OF CARE 115 MG/DL (70-110)
[2023-08-18 21:14] VITALS: RESP 18
[2023-08-19 05:56] LABS: GLUCOMETER DEV NAME(LOC) 3E.I 2; GLUCOSE,POINT OF CARE 87 MG/DL (70-110)
[2023-08-19 08:19] VITALS: TEMP 98.3
[2023-08-19 11:45] LABS: GLUCOMETER DEV NAME(LOC) 3EX.2; GLUCOSE,POINT OF CARE 116 MG/DL (70-110)
[2023-08-19 16:26] LABS: GLUCOMETER DEV NAME(LOC) 3EX.2; GLUCOSE,POINT OF CARE 98 MG/DL (70-110)
[2023-08-19 20:31] LABS: GLUCOMETER DEV NAME(LOC) 3E.I 2; GLUCOSE,POINT OF CARE 124 MG/DL (70-110)
[2023-08-19 20:53] VITALS: RESP 20
[2023-08-19] MEDS: NICOTINE 14 MG/24 HOUR PATCH TD PRN (21:36)
[2023-08-20 06:30] LABS: GLUCOMETER DEV NAME(LOC) 3E.I 2; GLUCOSE,POINT OF CARE 92 MG/DL (70-110)
[2023-08-20 08:35] VITALS: RESP 18
[2023-08-20 12:41] LABS: GLUCOMETER DEV NAME(LOC) 3EX.2; GLUCOSE,POINT OF CARE 109 MG/DL (70-110)
[2023-08-20 17:21] LABS: GLUCOMETER DEV NAME(LOC) 3EX.2; GLUCOSE,POINT OF CARE 135 MG/DL (70-110)
[2023-08-20 20:51] LABS: GLUCOMETER DEV NAME(LOC) 3E.I 2; GLUCOSE,POINT OF CARE 167 MG/DL (70-110)
[2023-08-20 20:57] VITALS: BP 127/58; PULSE 55; RESP 18; TEMP 97.1
[2023-08-21 05:46] LABS: GLUCOMETER DEV NAME(LOC) 3E.I 2; GLUCOSE,POINT OF CARE 78 MG/DL (70-110)
[2023-08-21 11:41] LABS: GLUCOMETER DEV NAME(LOC) 3E.I 2; GLUCOSE,POINT OF CARE 147 MG/DL (70-110)
[2023-08-21 16:40] LABS: GLUCOMETER DEV NAME(LOC) 3E.I 2; GLUCOSE,POINT OF CARE 76 MG/DL (70-110)
[2023-08-21 20:21] LABS: GLUCOMETER DEV NAME(LOC) 3E.I 2; GLUCOSE,POINT OF CARE 114 MG/DL (70-110)
[2023-08-21 20:24] VITALS: BP 114/62; PULSE 57; RESP 18; TEMP 98.1
[2023-08-22 06:01] LABS: GLUCOMETER DEV NAME(LOC) 3E.I 2; GLUCOSE,POINT OF CARE 73 MG/DL (70-110)
[2023-08-22 11:31] LABS: GLUCOMETER DEV NAME(LOC) 3E.I 2; GLUCOSE,POINT OF CARE 141 MG/DL (70-110)
[2023-08-22 16:46] LABS: GLUCOMETER DEV NAME(LOC) 3E.I 2; GLUCOSE,POINT OF CARE 139 MG/DL (70-110)
[2023-08-22 20:30] LABS: GLUCOMETER DEV NAME(LOC) 3E.I 2; GLUCOSE,POINT OF CARE 148 MG/DL (70-110)
[2023-08-22 22:22] VITALS: RESP 18
[2023-08-23 05:46] LABS: GLUCOMETER DEV NAME(LOC) 3E.I 2; GLUCOSE,POINT OF CARE 88 MG/DL (70-110)
[2023-08-23 08:55] VITALS: RESP 18
[2023-08-23 11:31] LABS: GLUCOMETER DEV NAME(LOC) 3E.I 2; GLUCOSE,POINT OF CARE 105 MG/DL (70-110)
[2023-08-23 16:36] LABS: GLUCOMETER DEV NAME(LOC) 3E.I 2; GLUCOSE,POINT OF CARE 89 MG/DL (70-110)
[2023-08-23 20:18] VITALS: BP 103/55; PULSE 57; RESP 18; TEMP 97.1
[2023-08-23 21:35] LABS: GLUCOMETER DEV NAME(LOC) 3E.I 2; GLUCOSE,POINT OF CARE 140 MG/DL (70-110)
[2023-08-24 05:41] LABS: GLUCOMETER DEV NAME(LOC) 3E.I 2; GLUCOSE,POINT OF CARE 71 MG/DL (70-110)
[2023-08-24 11:35] LABS: GLUCOMETER DEV NAME(LOC) 3EX.2; GLUCOSE,POINT OF CARE 105 MG/DL (70-110)
[2023-08-24 16:40] LABS: GLUCOMETER DEV NAME(LOC) 3EX.2; GLUCOSE,POINT OF CARE 87 MG/DL (70-110)
[2023-08-24 20:25] VITALS: RESP 18; TEMP 97.9
[2023-08-24 20:35] LABS: GLUCOMETER DEV NAME(LOC) 3E.I 2; GLUCOSE,POINT OF CARE 136 MG/DL (70-110)
[2023-08-25 07:10] LABS: GLUCOMETER DEV NAME(LOC) 3E.I 2; GLUCOSE,POINT OF CARE 97 MG/DL (70-110)
[2023-08-25 11:23] VITALS: TEMP 97.9
[2023-08-25 11:51] LABS: GLUCOMETER DEV NAME(LOC) 3EX.2; GLUCOSE,POINT OF CARE 139 MG/DL (70-110)
[2023-08-25 16:11] LABS: GLUCOMETER DEV NAME(LOC) 3EX.2; GLUCOSE,POINT OF CARE 77 MG/DL (70-110)
[2023-08-25 20:26] LABS: GLUCOMETER DEV NAME(LOC) 3E.I 2; GLUCOSE,POINT OF CARE 130 MG/DL (70-110)
[2023-08-25 23:39] VITALS: RESP 18
[2023-08-26 05:31] LABS: GLUCOMETER DEV NAME(LOC) 3E.I 2; GLUCOSE,POINT OF CARE 95 MG/DL (70-110)
[2023-08-26 08:37] VITALS: RESP 17
[2023-08-26 12:00] LABS: GLUCOMETER DEV NAME(LOC) 3E.I 2; GLUCOSE,POINT OF CARE 164 MG/DL (70-110)
[2023-08-26 17:31] LABS: GLUCOMETER DEV NAME(LOC) 3E.I 2; GLUCOSE,POINT OF CARE 113 MG/DL (70-110)
[2023-08-26 20:26] LABS: GLUCOMETER DEV NAME(LOC) 3E.I 2; GLUCOSE,POINT OF CARE 128 MG/DL (70-110)
[2023-08-26 20:56] VITALS: RESP 18
[2023-08-27 05:25] LABS: GLUCOMETER DEV NAME(LOC) 3E.I 2; GLUCOSE,POINT OF CARE 74 MG/DL (70-110)
[2023-08-27 08:12] VITALS: RESP 18; TEMP 98
[2023-08-27 11:55] LABS: GLUCOMETER DEV NAME(LOC) 3EX.2; GLUCOSE,POINT OF CARE 89 MG/DL (70-110)
[2023-08-27 15:41] LABS: GLUCOMETER DEV NAME(LOC) 3EX.2; GLUCOSE,POINT OF CARE 78 MG/DL (70-110)
[2023-08-27 20:06] LABS: GLUCOMETER DEV NAME(LOC) 3E.I 2; GLUCOSE,POINT OF CARE 103 MG/DL (70-110)
[2023-08-27 22:28] VITALS: RESP 18; TEMP 97.8
[2023-08-28 05:31] LABS: GLUCOMETER DEV NAME(LOC) 3E.I 2; GLUCOSE,POINT OF CARE 82 MG/DL (70-110)
[2023-08-28 11:41] LABS: GLUCOMETER DEV NAME(LOC) 3EX.2; GLUCOSE,POINT OF CARE 107 MG/DL (70-110)
[2023-08-28 17:21] LABS: GLUCOMETER DEV NAME(LOC) 3EX.2; GLUCOSE,POINT OF CARE 115 MG/DL (70-110)
[2023-08-28 21:18] VITALS: RESP 18
[2023-08-28 22:01] LABS: GLUCOMETER DEV NAME(LOC) 3E.I 2; GLUCOSE,POINT OF CARE 136 MG/DL (70-110)
[2023-08-29 07:05] LABS: GLUCOMETER DEV NAME(LOC) 3E.I 2; GLUCOSE,POINT OF CARE 91 MG/DL (70-110)
[2023-08-29 09:06] VITALS: RESP 18; TEMP 97.9
[2023-08-29 11:30] LABS: GLUCOMETER DEV NAME(LOC) 3E.I 2; GLUCOSE,POINT OF CARE 91 MG/DL (70-110)
[2023-08-29 17:36] LABS: GLUCOMETER DEV NAME(LOC) 3E.I 2; GLUCOSE,POINT OF CARE 87 MG/DL (70-110)
[2023-08-29 20:31] LABS: GLUCOMETER DEV NAME(LOC) 3E.I 2; GLUCOSE,POINT OF CARE 125 MG/DL (70-110)
[2023-08-29 23:00] VITALS: RESP 18
[2023-08-30 05:31] LABS: GLUCOMETER DEV NAME(LOC) 3E.I 2; GLUCOSE,POINT OF CARE 128 MG/DL (70-110)
[2023-08-30 08:10] VITALS: RESP 18; TEMP 98
[2023-08-30 11:30] LABS: GLUCOMETER DEV NAME(LOC) 3E.I 2; GLUCOSE,POINT OF CARE 120 MG/DL (70-110)
[2023-08-30 17:51] LABS: GLUCOMETER DEV NAME(LOC) 3E.I 2; GLUCOSE,POINT OF CARE 122 MG/DL (70-110)
[2023-08-30 21:20] LABS: GLUCOMETER DEV NAME(LOC) 3E.I 2; GLUCOSE,POINT OF CARE 134 MG/DL (70-110)
[2023-08-30 23:32] VITALS: BP 136/60; PULSE 60; RESP 18; TEMP 97.5
[2023-08-31 05:40] LABS: GLUCOMETER DEV NAME(LOC) 3E.I 2; GLUCOSE,POINT OF CARE 67 MG/DL (70-110)
[2023-08-31 06:26] LABS: GLUCOMETER DEV NAME(LOC) 3E.I 2; GLUCOSE,POINT OF CARE 130 MG/DL (70-110)
[2023-08-31 08:23] VITALS: TEMP 97.9
[2023-08-31 17:26] LABS: GLUCOMETER DEV NAME(LOC) 3E.I 2; GLUCOSE,POINT OF CARE 79 MG/DL (70-110)
[2023-08-31 21:15] VITALS: RESP 18
[2023-08-31 21:25] LABS: GLUCOMETER DEV NAME(LOC) 3E.I 2; GLUCOSE,POINT OF CARE 144 MG/DL (70-110)
[2023-09-01 07:16] LABS: GLUCOMETER DEV NAME(LOC) 3E.I 2; GLUCOSE,POINT OF CARE 84 MG/DL (70-110)
[2023-09-01 08:45] VITALS: RESP 19
[2023-09-01 11:30] LABS: GLUCOMETER DEV NAME(LOC) 3EX.2; GLUCOSE,POINT OF CARE 71 MG/DL (70-110)
[2023-09-01 17:26] LABS: GLUCOMETER DEV NAME(LOC) 3EX.2; GLUCOSE,POINT OF CARE 88 MG/DL (70-110)
[2023-09-01 20:26] VITALS: RESP 18
[2023-09-01 21:01] LABS: GLUCOMETER DEV NAME(LOC) 3E.I 2; GLUCOSE,POINT OF CARE 166 MG/DL (70-110)
[2023-09-02 06:10] LABS: GLUCOMETER DEV NAME(LOC) 3E.I 2; GLUCOSE,POINT OF CARE 127 MG/DL (70-110)
[2023-09-02 08:07] VITALS: RESP 18
[2023-09-02 12:10] LABS: GLUCOMETER DEV NAME(LOC) 3E.I 2; GLUCOSE,POINT OF CARE 106 MG/DL (70-110)
[2023-09-02 17:01] LABS: GLUCOMETER DEV NAME(LOC) 3E.I 2; GLUCOSE,POINT OF CARE 101 MG/DL (70-110)
[2023-09-02 21:20] VITALS: RESP 18
[2023-09-02 21:25] LABS: GLUCOMETER DEV NAME(LOC) 3E.I 2; GLUCOSE,POINT OF CARE 154 MG/DL (70-110)
[2023-09-03 05:41] LABS: GLUCOMETER DEV NAME(LOC) 3E.I 2; GLUCOSE,POINT OF CARE 83 MG/DL (70-110)
[2023-09-03] MEDS ORDERED: LORATADINE 10 MG TABLET PO PRN (08:15)
[2023-09-03 09:23] VITALS: RESP 18; TEMP 97.4
[2023-09-03] MEDS: BACITRACIN 28 GM OINTMENT TP SCH (10:55)
[2023-09-03 12:06] LABS: GLUCOMETER DEV NAME(LOC) 3EX.2; GLUCOSE,POINT OF CARE 124 MG/DL (70-110)
[2023-09-03 17:26] LABS: GLUCOMETER DEV NAME(LOC) 3EX.2; GLUCOSE,POINT OF CARE 96 MG/DL (70-110)
[2023-09-03 20:44] VITALS: BP 134/63; PULSE 58; RESP 18; TEMP 98.1
[2023-09-03 21:15] LABS: GLUCOMETER DEV NAME(LOC) 3E.I 2; GLUCOSE,POINT OF CARE 110 MG/DL (70-110)
[2023-09-04 06:30] LABS: GLUCOMETER DEV NAME(LOC) 3E.I 2; GLUCOSE,POINT OF CARE 69 MG/DL (70-110)
[2023-09-04 09:35] VITALS: RESP 18; TEMP 98.2
[2023-09-04 11:26] LABS: GLUCOMETER DEV NAME(LOC) 3EX.2; GLUCOSE,POINT OF CARE 108 MG/DL (70-110)
[2023-09-04 16:41] LABS: GLUCOMETER DEV NAME(LOC) 3EX.2; GLUCOSE,POINT OF CARE 162 MG/DL (70-110)
[2023-09-04 20:01] LABS: GLUCOMETER DEV NAME(LOC) 3E.I 2; GLUCOSE,POINT OF CARE 88 MG/DL (70-110)
[2023-09-04 20:35] VITALS: BP 129/81; PULSE 80; RESP 18; TEMP 97.7
[2023-09-05 07:16] LABS: GLUCOMETER DEV NAME(LOC) 3E.I 2; GLUCOSE,POINT OF CARE 91 MG/DL (70-110)
[2023-09-05 10:14] VITALS: RESP 18
[2023-09-05 11:51] LABS: GLUCOMETER DEV NAME(LOC) 3EX.2; GLUCOSE,POINT OF CARE 142 MG/DL (70-110)
[2023-09-05 17:35] LABS: GLUCOMETER DEV NAME(LOC) 3EX.2; GLUCOSE,POINT OF CARE 93 MG/DL (70-110)
[2023-09-05 20:20] LABS: GLUCOMETER DEV NAME(LOC) 3E.I 2; GLUCOSE,POINT OF CARE 90 MG/DL (70-110)
[2023-09-05 21:17] VITALS: BP 151/69; PULSE 59; RESP 18; TEMP 97
[2023-09-06 07:06] LABS: GLUCOMETER DEV NAME(LOC) 3E.I 2; GLUCOSE,POINT OF CARE 90 MG/DL (70-110)
[2023-09-06 11:04] VITALS: RESP 18; TEMP 98
[2023-09-06 11:45] LABS: GLUCOMETER DEV NAME(LOC) 3E.I 2; GLUCOSE,POINT OF CARE 153 MG/DL (70-110)
[2023-09-06 17:56] LABS: GLUCOMETER DEV NAME(LOC) 3E.I 2; GLUCOSE,POINT OF CARE 93 MG/DL (70-110)
[2023-09-06 20:26] LABS: GLUCOMETER DEV NAME(LOC) 3E.I 2; GLUCOSE,POINT OF CARE 146 MG/DL (70-110)
[2023-09-06 21:31] VITALS: BP 131/66; PULSE 65; RESP 18; TEMP 97.2
[2023-09-07 06:36] LABS: GLUCOMETER DEV NAME(LOC) 3E.I 2; GLUCOSE,POINT OF CARE 85 MG/DL (70-110)
[2023-09-07 08:45] VITALS: RESP 18; TEMP 97
[2023-09-07 12:05] LABS: GLUCOMETER DEV NAME(LOC) 3E.I 2; GLUCOSE,POINT OF CARE 134 MG/DL (70-110)
[2023-09-07 16:51] LABS: GLUCOMETER DEV NAME(LOC) 3E.I 2; GLUCOSE,POINT OF CARE 85 MG/DL (70-110)
[2023-09-07 20:25] LABS: GLUCOMETER DEV NAME(LOC) 3E.I 2; GLUCOSE,POINT OF CARE 117 MG/DL (70-110)
[2023-09-07 20:42] VITALS: RESP 18
[2023-09-08 05:35] LABS: GLUCOMETER DEV NAME(LOC) 3E.I 2; GLUCOSE,POINT OF CARE 78 MG/DL (70-110)
[2023-09-08 09:18] VITALS: RESP 18; TEMP 97.8
[2023-09-08 09:21] VITALS: TEMP 97.8
[2023-09-08 12:01] LABS: GLUCOMETER DEV NAME(LOC) 3EX.2; GLUCOSE,POINT OF CARE 137 MG/DL (70-110)
[2023-09-08 16:35] LABS: GLUCOMETER DEV NAME(LOC) 3EX.2; GLUCOSE,POINT OF CARE 107 MG/DL (70-110)
[2023-09-08 20:20] LABS: GLUCOMETER DEV NAME(LOC) 3E.I 2; GLUCOSE,POINT OF CARE 80 MG/DL (70-110)
[2023-09-08 22:03] VITALS: RESP 18
[2023-09-09 05:35] LABS: GLUCOMETER DEV NAME(LOC) 3E.I 2; GLUCOSE,POINT OF CARE 75 MG/DL (70-110)
[2023-09-09 10:18] VITALS: RESP 18; TEMP 97.2
[2023-09-09 11:21] LABS: GLUCOMETER DEV NAME(LOC) 3EX.2; GLUCOSE,POINT OF CARE 136 MG/DL (70-110)
[2023-09-09] MEDS ORDERED: RISP-32 PO (14:07)
[2023-09-09] MEDS ORDERED: BACI28.410 TP (14:08)
== END 2023-09-09 14:26 | DRG 885 ==
LOC: 3EX 22:24
PROVIDERS: ADMIT Psychiatry & Neurology Child & Adolescent Psychiatry; ATTEND Psychiatry & Neurology Child & Adolescent Psychiatry
PROC: GZHZZZZ Group Psychotherapy (ICD-10-PCS; principal; 2023-07-29)
PROC: GZ51ZZZ Individual Psychotherapy, Behavioral (ICD-10-PCS; 2023-07-29)
DX: F20.0 Paranoid schizophrenia (principal); S52.591A Other fractures of lower end of right radius, initial encounter for closed fracture; I10 Essential (primary) hypertension; E78.5 Hyperlipidemia, unspecified; E03.9 Hypothyroidism, unspecified; E11.649 Type 2 diabetes mellitus with hypoglycemia without coma; X58.XXXA Exposure to other specified factors, initial encounter; F41.9 Anxiety disorder, unspecified; Z91.148 Patient's other noncompliance with medication regimen for other reason; Z79.899 Other long term (current) drug therapy; Y93.89 Activity, other specified; Y92.89 Other specified places as the place of occurrence of the external cause; Y99.8 Other external cause status
CPT/HCPCS: 80053; 80061; 80164; 82962; 83036; 84443; 85025; 87081; G0378; J1200; J1630; J2060; J3230